=== PATIENT | male | born 1965 | race Two or more races ===

== ENCOUNTER 2017-10-03 16:29 | Emergency (ER) | payer SELFPAY ==
[~2017-10-03] VITALS: Ht 182.9 cm; Wt 90.7 kg
[2017-10-03] MEDS ORDERED: CALCIUM CHLOR(10%) 100MG/ML 10ML SYRINGE IV ONE (16:30)
[2017-10-03] MEDS ORDERED: SODIUM BICARBONATE 8.4% INJ 50ML SYRINGE IV ONE (16:30)
[2017-10-03] MEDS ORDERED: EPINEPHrine HCL 1 MG/10 ML SYRG IV ONE (16:30)
[2017-10-03 16:32] VITALS: BP 0/0
== END 2017-10-03 20:57 | disposition expired ==
LOC: ER 16:29 → EDBD 16:29 → ER 20:57
DX: I46.9 Cardiac arrest, cause unspecified (principal); I25.2 Old myocardial infarction
CPT/HCPCS: 92950; 99285; J0171